=== PATIENT | female | born 1960 | race African-American/Black ===

== ENCOUNTER → 2017-05-21 | Outpatient (CLI) | payer BC | END | disposition home or self-care (01) | LOC: KCIC MAMMO 09:35 | DX: Z12.31 Encounter for screening mammogram for malignant neoplasm of breast (principal) | CPT/HCPCS: 77063; 77067 ==

== ENCOUNTER → 2018-01-07 | Outpatient (CLI) | payer BC ==
[2015-06-17 17:45] VITALS: BP 139/67
[~2018-01-07] MED LIST: INTE30DI IM
--- NOTE | 2018-01-07 13:33 | KCIC ---
Pelvic ultrasound Clinical Indication: Right pelvic pain.. Hysterectomy 2003.. TRANSABDOMINAL SCAN Ovaries are not seen. TRANSVAGINAL SCAN Uterus: * Surgically removed * No abnormality is seen at the vaginal cuff. Right ovary: * Size: 2.6 cm long axis. * Blood flow: Intact * Appearance: No significant mass. Left ovary: * Size: 1.9 cm long axis. * Blood flow: Intact * Appearance: No significant mass. Free fluid: None visualized IMPRESSION: No significant sonographic abnormality, post hysterectomy. Electronically signed by: Woody Shaver MD (01/07/2018 1:30 PM) [facility]2
--- NOTE | 2018-01-07 13:38 | KCIC ---
Complete abdominal ultrasound History: Abdominal pain on the right.. Findings: Aorta: No evidence of aneurysm. Inferior vena cava: Patent Pancreas: Unremarkable Liver: Measures 18.8 cm longitudinal. Slightly heterogeneous echotexture likely fatty infiltration. Gallbladder: No evidence of cholelithiasis, gallbladder wall thickening or pericholecystic fluid. Bile ducts: No evidence of dilatation Right kidney: 11.1 cm length. No evidence of hydronephrosis. Left kidney: 11.0 cm length. Poorly visualized sonographically, but no obvious hydronephrosis. Spleen: Not enlarged Impression: 1. No significant gallbladder pathology. 2. Findings suggest hepatic steatosis. Electronically signed by: Woody Shaver MD (01/07/2018 1:35 PM) [facility]2
== END | disposition home or self-care (01) ==
LOC: KCIC US 09:57
PROVIDERS: ATTEND Nurse Practitioner
DX: R10.2 Pelvic and perineal pain (principal); R10.84 Generalized abdominal pain
CPT/HCPCS: 76700; 76830; 76856

== ENCOUNTER → 2018-05-29 | Outpatient (CLI) | payer OTHER ==
[2015-06-17 17:45] VITALS: BP 139/67
--- NOTE | 2018-05-29 16:45 | KCIC ---
Bilateral digital screening mammograms: Reason for examination: Routine screening. Comparison is made to previous studies dated 05/21/2017 and 05/14/2016. Interpretation was made with the benefit of CAD. The skin and nipples show no abnormalities. No abnormal axillary lymph nodes are seen. The breast parenchyma is heterogeneously dense. (Breast density: Category C.) There appears to be a small nodule developing in the right breast at approximately the 9:00 position 5 cm from the nipple and measuring approximately 7 mm in size. Recommend further evaluation with coned compression views and ultrasound. There is also suggestion of a small nodule present posterior laterally in the left breast on cc view possibly at the 3:00 position approximately 9 cm from the nipple. Further evaluation with coned compression and ultrasound is recommended. There are no other dominant masses, suspicious calcifications or architectural distortion. Impression: Nodular densities suggested at the 9:00 position approximately 5 cm from the nipple of the right breast and laterally possibly at the 3:00 B position of the left breast. Recommend further evaluation with coned compression views and ultrasound. Your patient's mammogram demonstrates that she has dense breast tissue (breast density category C or D), which could hide abnormalities, and if she has other risk factors for breast cancer that have been identified, she might benefit from supplemental screening tests that may be suggested by you as her ordering physician. Dense breast tissue, in and of itself, is a relatively common condition. Therefore, this information is not provided to cause undue concern, but rather to raise your awareness and to promote discussion with your patient regarding the presence of other risk factors, in addition to dense breast tissue. Your patient's mammography results will be sent to her. BI-RAD Category 0: Incomplete. Needs additional imaging evaluation. "Our facility is accredited by the [employer] Mammography [employer]." This patient's information has been entered into a reminder system for the patient to be notified with the results of her examination and a target date for the next mammogram. Electronically signed by: Gem Henley MD (05/29/2018 4:40 PM) [facility]
== END | disposition home or self-care (01) ==
LOC: KCIC MAMMO 15:12
PROVIDERS: ATTEND Obstetrics & Gynecology
DX: Z12.31 Encounter for screening mammogram for malignant neoplasm of breast (principal)
CPT/HCPCS: 77067

== ENCOUNTER → 2018-06-11 | Outpatient (CLI) | payer OTHER ==
[2015-06-17 17:45] VITALS: BP 139/67
--- NOTE | 2018-06-11 17:10 | KCIC ---
Bilateral diagnostic digital mammograms: Reason for examination: Nodular densities on screening mammogram. Comparison is made to mammographic exam dated 05/29/2018. Coned compression views were obtained bilaterally with attention to the areas of mammographic concern. With these additional views, nodule persists in the 10:00 B position of the right breast. The nodularity laterally in the left breast is not as well visualized however may be due to the fibroglandular tissue in that area. Further evaluation with ultrasound will follow. IMPRESSION: Persistent nodular density at the 10:00 B position of the right breast. No definite abnormality seen in the left breast. Bilateral ultrasound to follow. BI-RADS Category 0: Incomplete. Needs additional imaging evaluation. Bilateral breast ultrasound: Ultrasound examination was performed bilaterally in the areas of mammographic concern and at the axilla. In the right breast at the 9:00 position 5 cm from the nipple and appearing to correspond with the area of mammographic concern, there is a hypoechoic somewhat heterogeneous appearing nodule measuring approximately 7.7 x 5.5 mm in greatest dimension and showing somewhat irregular margination. Further evaluation with biopsy is recommended. No other cystic or solid lesions are seen. No abnormal appearing lymph nodes are seen in the right axilla. In the left breast at the 2:30 position 8 cm from the nipple and probably corresponding to the area of mammographic concern, there is a hypoechoic circumscribed lesion in parallel orientation consistent with a small fibroadenoma or fibrocystic lesion measuring 3.9 mm in greatest dimension. No suspicious nodules are seen. No grossly abnormal appearing lymph nodes are seen in the left axilla. IMPRESSION: 7.7 mm hypoechoic and heterogeneous nodule with irregular margination in the 9:00 position of the right breast. Recommend further evaluation with ultrasound-guided biopsy. Benign-appearing fibrocystic type lesion at the 2:30 position of the left breast measuring 3.9 mm in size. Recommend 6 month sonographic follow-up. BI-RADS Category 4: Suspicious. These findings have been discussed with the patient and the patient's physician, Diana Ang, office was called about these findings by myself on 06/11/2018 without reaching anyone to take a message at 11:40 AM. Will try again tomorrow. "Our facility is accredited by the [employer] Mammography [employer]." This patient's information has been entered into a reminder system for the patient to be notified with the results of her examination and a target date for the next mammogram. Electronically signed by: Gem Henley MD (06/11/2018 5:07 PM) [facility]
== END | disposition home or self-care (01) ==
LOC: KCIC MAMMO 09:09
PROVIDERS: ATTEND Obstetrics & Gynecology
DX: N63.11 Unspecified lump in the right breast, upper outer quadrant (principal); N64.89 Other specified disorders of breast
CPT/HCPCS: 76641; 77066

== ENCOUNTER → 2018-08-08 | Outpatient (CLI) | payer OTHER ==
[2015-06-17 17:45] VITALS: BP 139/67
[~2018-08-08] MED LIST changes: +LIDOCAINE 2%/EPI 1:100,000 20 ML VIAL. IJ ONE
--- NOTE | 2018-08-08 10:15 | RAD ---
DATE: 08/08/2018 EXAM: DIGITAL DIAGNOSTIC RT HISTORY: The patient has just undergone ultrasound-guided right breast biopsy. COMPARISON: 06/11/2018 right unilateral diagnostic mammographic images and 05/29/2018 screen mammographic exam This study was interpreted with the benefit of Computerized Aided Detection (CAD). Breast Density: HETERO The breast parenchyma is heterogenously dense, which could reduce sensitivity of mammography. Breast parenchyma level C. FINDINGS: Biopsy clip marker is present at the right upper outer breast. Soft tissue gas noted. The clip marker is present posterior to the mass involving the right breast x 3.3 cm. The mass of interest at the anterior right upper outer breast is intact. IMPRESSION: The ultrasound lesion evident which was biopsied does not correspond with the mammographic finding of interest. Stereotactic biopsy should considered pending pathology results. BI-RADS CATEGORY: 4 SUSPICIOUS ABNORMALITY- BIOPSY SHOULD BE CONSIDERED RECOMMENDED FOLLOW-UP: BIO BIOPSY RECOMMENDED PQRS compliance statement: Patient information was entered into a reminder system with a target due date to be determined pending pathology results for the next mammogram. Mammography is a sensitive method for finding small breast cancers, but it does not detect them all and is not a substitute for careful clinical examination. A negative mammogram does not negate a clinically suspicious finding and should not result in delay in biopsying a clinically suspicious abnormality. "Our facility is accredited by the [employer] Mammography Program."
--- NOTE | 2018-08-08 17:49 | RAD ---
Examination: US GUID NDL PLACE/ASPI/BX History: Right breast 9:00 mass Comparison/Correlation: None Findings: Risks and benefits of ultrasound-guided core needle biopsy were discussed with the patient. Informed consent was obtained. Preliminary ultrasound imaging was performed for localization purposes. Cleansing with Betadine swabs was then performed. Sterile drapes were placed. Sterile probe cover and sterile gel utilized. 5 cc 1 percent lidocaine was administered along inferolateral approach. Small scalpel incision was made. An introducer was placed. 12-gauge core biopsy needle was placed. 7 passes were made. Specimens were placed in a formalin jar. Biopsy clip marker was then placed under ultrasound guidance. Patient tolerated the procedure well without immediate complications. Impression: Successful right breast core biopsy by ultrasound guidance. Specimens sent to the lab. Electronically signed by: Arvin Davis MD (08/08/2018 5:46 PM) [facility]
--- NOTE | 2018-08-11 16:06 | PATHOLOGY ---
[facility] Accession Number: [id number] . 01 Material submitted: . breast - RIGHT BREAST TISSUE, 9:00. Modifiers: right, 9:00 . 01 Clinical history: . Right breast mass . 02 Diagnosis: Breast tissue, right breast mass 9:00 needle biopsies: - Fibroadenomatous change, focal. - Sclerosing adenosis, focal. (JPM:[facility] 08/11/2018) QTP/08/11/2018 . 02 Comment: Sections of the right breast mass at 9:00 needle biopsy shows focal fibroadenomatous change measuring up to 0.7 cm, in addition to a couple of small foci of sclerosing adenosis. There is no evidence of malignancy. Please correlate with mammographic findings. (JPM:[facility] 08/11/2018) . 02 Electronically signed: . Julio C Parks MD, Pathologist NPI- [id number] . 01 Gross description: . Received in formalin labeled "Mel Berman, right breast 9:00," are multiple needle cores of yellow-rodarte fibrofatty tissue measuring 2.5 x 0.6 x 0.2 cm in aggregate dimensions. The tissue is submitted in its entirety in cassettes A1 through A3. The cold ischemic time is 10 minutes. The total formalin fixation time is 12 hours and 10 minutes. (TSD; 08/08/2018) TOB/TOB . 02 Pathologist provided ICD-10: N60.21 . 02 CPT . 100732 Specimen Comment: A courtesy copy of this report has been sent to Specimen Comment: [phone], , . Specimen Comment: Report sent to ,DR FROST / DR VEGA Performed at: 01 [facility] [address], [place], [place] [id number] MD Jaspal Og MD Phone: [phone] Performed at: 02 [facility] [address] [place], [place] [id number] MD Julio C Parks MD Phone: [phone]
== END | disposition home or self-care (01) ==
LOC: US 08:39
PROVIDERS: ATTEND Obstetrics & Gynecology
DX: N60.21 Fibroadenosis of right breast (principal)
CPT/HCPCS: 19083; 77065; 88305; C1713; 19081; 76942

== ENCOUNTER → 2018-12-04 | Outpatient (CLI) | payer OTHER ==
[2015-06-17 17:45] VITALS: BP 139/67
[~2018-12-04] MED LIST changes: -LIDOCAINE 2%/EPI 1:100,000 20 ML VIAL. IJ ONE
--- NOTE | 2018-12-04 13:56 | KCIC ---
Bilateral breast ultrasound: Reason for examination: Follow-up right breast biopsy and follow-up left breast nodule. Comparison is made to previous study dated 06/11/2018. Ultrasound examination of the left breast was performed with attention to the area of previous sonographic concern and the left axilla. Ultrasound examination of the right breast was performed with attention to the area of previous biopsy and the right axilla. In the right breast, there continues to be hypoechoic nodule at the 9:00 position 5 cm from the nipple measuring approximately 7.3 mm in size postbiopsy. No new lesions are seen. No abnormal appearing lymph nodes are seen in the right axilla. In the left breast, the fibrocystic type lesion seen at the 2:30 position has resolved. No new cystic or solid nodules are seen in the left breast and no abnormal appearing lymph nodes are seen in the left axilla. IMPRESSION: 7.3 mm nodule corresponding to the fibroadenomatous lesion biopsied previously in the right breast at the 9:00 position. No abnormality seen in the left breast. Recommend routine mammographic follow-up. BI-RADS Category 2: Benign. "Our facility is accredited by the [employer] Mammography Program." This patient's information has been entered into a reminder system for the patient to be notified with the results of her examination and a target date for the next mammogram. Electronically signed by: Gem Henley MD (12/04/2018 1:54 PM) [facility]
== END | disposition home or self-care (01) ==
LOC: KCIC US 12:50
PROVIDERS: ATTEND Obstetrics & Gynecology
DX: N63.11 Unspecified lump in the right breast, upper outer quadrant (principal)
CPT/HCPCS: 76641

== ENCOUNTER → 2019-12-04 | Outpatient (CLI) | payer BC ==
[2015-06-17 17:45] VITALS: BP 139/67
--- NOTE | 2019-12-04 08:04 | RAD ---
EXAM: LIMITED ABDOMINAL ULTRASOUND. HISTORY: Right upper quadrant abdominal pain for a few months. COMPARISON: None. FINDINGS: Sonographic evaluation of the right upper quadrant abdomen was performed. The liver appears diffusely increased in parenchymal echotexture. There are no focal lesions. Liver appears enlarged measuring 21.3 cm in length. Normal directional flow in the portal vein. The gallbladder is unremarkable without evidence of stones, wall thickening or pericholecystic fluid. There is no sonographic Trivedi sign. The common duct measures 4 mm. The visualized portions of the head of the pancreas reveal no abnormality. The right kidney measures 10.8 x 5.1 x 4.4 cm. Cortical thickness and echogenicity are preserved. There is no hydronephrosis The visualized portions of the abdominal aorta and inferior vena cava are grossly patent and normal in caliber. IMPRESSION: 1. Hepatomegaly and hepatic steatosis. Otherwise unremarkable right upper quadrant abdominal ultrasound. No evidence of cholelithiasis or acute cholecystitis. Electronically signed by: Cori Abreu MD (12/04/2019 8:01 AM) [id number]
== END | disposition home or self-care (01) ==
LOC: US 06:36
PROVIDERS: ATTEND Family Medicine
DX: R10.11 Right upper quadrant pain (principal); R16.0 Hepatomegaly, not elsewhere classified; K76.0 Fatty (change of) liver, not elsewhere classified
CPT/HCPCS: 76705

== ENCOUNTER → 2020-07-05 | Outpatient (CLI) | payer OTHER ==
[2015-06-17 17:45] VITALS: BP 139/67
--- NOTE | 2020-07-05 12:41 | RAD ---
EXAM: Bilateral digital screening mammogram with tomosynthesis. HISTORY: 59-year-old female presents for screening mammography. TECHNIQUE: Full-field digital craniocaudal and mediolateral oblique 2D and 3D tomosynthesis images of both breasts are obtained for evaluation. Computer aided detection was applied. COMPARISON: Sonogram dated 12/04/2018 and mammograms dated 08/08/2018, 06/11/2018, 05/29/2018, and 05/21/19 18. BREAST PARENCHYMAL DENSITY: Level B - Scattered fibroglandular densities. FINDINGS: There is no new suspicious mass, microcalcification or region of architectural distortion. There is a biopsy clip within the posterior 9:00 position of the right breast. There are stable areas of asymmetry and nodularity in both breasts, including a nodular density within the subareolar aspec t of the right breast. The 3 year course of stability favors benignity. IMPRESSION: BI-RADS Category 2: Benign finding(s). RECOMMENDATION: Annual mammography is recommended. If your mammogram demonstrates that you have dense breast tissue, which could hide abnormalities, and if you have other risk factors for breast cancer that have been identified, you might benefit from s upplemental screening tests that may be suggested by your ordering physician. Dense breast tissue, i n and of itself, is a relatively common condition. This information is not provided to cause undue c oncern, but rather to raise your awareness and to promote discussion with your physician regarding th e presence of other risk factors, in addition to dense breast tissue. A report of your mammography re sults will be sent to you and your physician. You should contact your physician if you have any ques tions or concerns regarding this report. Mammography is a sensitive method for finding small breast cancers, but it does not detect them all a nd is not a substitute for careful clinical examination. A negative mammogram does not negate a clin ically suspicious finding and should not result in delay in biopsying a clinically suspicious abnorma lity. PQRS compliance statement - Patient information was entered into a reminder system with a target due date for the next mammogram. "Our facility is accredited by the [employer] Mammography [employer]." Electronically signed by: Amy Cheng MD (07/05/2020 12:39 PM) [id number]
== END ==
LOC: MAMMO 09:30
PROVIDERS: ATTEND Family Medicine
DX: Z12.31 Encounter for screening mammogram for malignant neoplasm of breast (principal)
CPT/HCPCS: 77063; 77067

== ENCOUNTER → 2021-07-14 | Outpatient (CLI) | payer OTHER ==
[2015-06-17 17:45] VITALS: BP 139/67
--- NOTE | 2021-07-14 12:15 | KCIC ---
Bilateral digital screening mammograms with 3-D tomosynthesis: Reason for examination: Routine screening. Comparison is made to previous studies dated back to 04/15/2015. Bilateral mammograms in CC and oblique projections were obtained with 2-D imaging and 3-D tomosynthes is imaging on a Siemens Inspiration unit and reviewed on the workstation. Interpretation was made wit h the benefit of CAD. The skin and nipples show no abnormalities. No abnormal axillary lymph nodes are seen. The breast par enchyma is heterogeneously dense. (Breast density: Category C.) There continue to be small circumscri bed nodules at the 8:00 A and 10:00 B positions anteriorly the right breast which are stable. There i s a biopsy clip present posteriorly in the right breast. There are no new dominant masses, suspicious calcifications or architectural distortion. Impression: No evidence of malignancy. Recommend routine screening. Your patient's mammogram demonstrates that she has dense breast tissue (breast density category C or D), which could hide abnormalities, and if she has other risk factors for breast cancer that have bee n identified, she might benefit from supplemental screening tests that may be suggested by you as her ordering physician. Dense breast tissue, in and of itself, is a relatively common condition. Therefo re, this information is not provided to cause undue concern, but rather to raise your awareness and t o promote discussion with your patient regarding the presence of other risk factors, in addition to d ense breast tissue. Your patient's mammography results will be sent to her. BI-RAD Category 2: Benign. "Our facility is accredited by the [employer] Mammography Program." This patient's information has been entered into a reminder system for the patient to be notified wit h the results of her examination and a target date for the next mammogram. Electronically signed by: Gem Henley MD (07/14/2021 12:13 PM) [id number]
== END ==
LOC: KCIC MAMMO 08:33
PROVIDERS: ATTEND Family Medicine
DX: Z12.31 Encounter for screening mammogram for malignant neoplasm of breast (principal)
CPT/HCPCS: 77063; 77067